=== PATIENT | female | born 1935 | race Hispanic/Latino ===

== ENCOUNTER 2017-10-05 05:37 | Inpatient (IN) | payer OTHER ==
[2017-10-01 09:25] VITALS: BP 153/71
[2017-10-01 09:53] LABS: BASOPHILS % (AUTO) 0.8 % (0.0-5.0); EOSINOPHILS % (AUTO) 2.2 % (0.0-8.0); HEMATOCRIT 32.3 % (36-48); MEAN CORPUSCULAR HEMOGLOBIN 27.8 pg (27.0-33.0); MEAN CORPUSCULAR HGB CONC 33.2 g/dL (32.0-36.0); MEAN CORPUSCULAR VOLUME 83.5 fL (79-99); MONOCYTES % (AUTO) 8.2 % (3.0-13.0); NEUTROPHILS % (AUTO) 68.8 % (40.0-77.0); NUCLEATED RED BLOOD CELLS 0.1 % (0.0-0.19); PLATELET COUNT (AUTO) 121 K/uL (130-400); RED BLOOD CELL COUNT(AUTO) 3.87 MIL/uL (4.00-5.50); RED CELL DISTRIBUTION WIDTH 17.3 % (11.0-15.5); WHITE BLOOD COUNT (AUTO) 2.5 K/uL (4.8-10.8)
[2017-10-01 10:00] LABS: CREATININE 0.7 mg/dL (0.5-1.5); POTASSIUM 3.7 mmol/L (3.5-5.1)
[2017-10-01 10:07] LABS: APPEARANCE,URINE Clear (CLEAR); BILIRUBIN,URINE Negative (NEGATIVE); COLOR,URINE Yellow (YELLOW); GLUCOSE, URINE (UA) Negative (NEGATIVE); KETONES,URINE Negative (NEGATIVE); LEUKOCYTE ESTERASE ,URINE Negative (NEGATIVE); NITRATE,URINE Negative (NEGATIVE); OCCULT BLOOD,URINE Negative (NEGATIVE); PROTEIN,URINE Negative (NEGATIVE)
[2017-10-01 10:07] LABS: INR 1.08 (0.85-1.15); PROTHROMBIN TIME 11.3 SEC (9.6-11.6)
[2017-10-01 10:18] LABS: BASOPHILS % (MANUAL) 3 % (0-2); EOSINOPHILS % (MANUAL) 1 % (1-6); LYMPHOCYTES % (MANUAL) 11 % (22-44); MAN.DIFF COMMENT-IMPRESSION MANUAL DIFFERENTIAL; MONOCYTES % (MANUAL) 7 % (2-9); PLATELET MORPHOLOGY COMMENT SLIGHTLY DECREASED; SEGMENTED NEUTROPHILS % 78 % (40-70)
[2017-10-05] VITALS (18 sets, daily range): BP systolic 116–184; BP diastolic 48–110
[~2017-10-05] VITALS: Ht 160 cm; Wt 89.8 kg
[~2017-10-05 05:37] MED LIST: ACET-2247 PO; ASPI81TA40 PO; METF500T6 PO; METO50TA18 PO; PANT20TA12 PO; PIOG45TA17 PO; SODIUM CHLORIDE 0.9% 500ML 500 ML IV SCH
[2017-10-05 06:03] LABS: BASOPHILS % (AUTO) 0.7 % (0.0-5.0); LYMPHOCYTES % (AUTO) 21.2 % (21.0-51.0); MEAN CORPUSCULAR HEMOGLOBIN 27.6 pg (27.0-33.0); MEAN CORPUSCULAR HGB CONC 33.4 g/dL (32.0-36.0); MEAN CORPUSCULAR VOLUME 82.6 fL (79-99); MONOCYTES % (AUTO) 8.3 % (3.0-13.0); NEUTROPHILS % (AUTO) 67.8 % (40.0-77.0); PLATELET COUNT (AUTO) 150 K/uL (130-400); RED CELL DISTRIBUTION WIDTH 16.6 % (11.0-15.5)
[2017-10-05 06:23] LABS: BASOPHILS % (MANUAL) 1 % (0-2); EOSINOPHILS % (MANUAL) 1 % (1-6); LYMPHOCYTES % (MANUAL) 16 % (22-44); MONOCYTES % (MANUAL) 12 % (2-9); SEGMENTED NEUTROPHILS % 70 % (40-70)
[2017-10-05 06:24] LABS: MAN.DIFF COMMENT-IMPRESSION MANUAL DIFFERENTIAL; PLATELET MORPHOLOGY COMMENT ADEQUATE
[2017-10-05] MEDS ORDERED: SODIUM CHLORIDE 0.9% 1000ML 1,000 ML IV ONE (06:24)
[2017-10-05] MEDS ORDERED: IOPAMIDOL-370 100 ML VIAL IV ONE (09:02)
[2017-10-05] MEDS ORDERED: LIDOCAINE HCL 2% 20ML ONE (09:02)
[2017-10-05] MEDS ORDERED: ISOVUE-370 50ML VIAL IV ONE (09:02)
[2017-10-05] MEDS ORDERED: NITROGLYCERIN 5 MG/ML 10 ML VIAL IV ONE (09:02)
[2017-10-05] MEDS ORDERED: BIVALIRUDIN 250 MG/VIAL IV ONE (09:10)
[2017-10-05] MEDS ORDERED: MIDAZOLAM HCL 1 MG/ML 2ML VIAL ONE (09:32)
[2017-10-05] MEDS ORDERED: LABETALOL HCL 5 MG/ML 20ML VIAL IV ONE (09:34)
[2017-10-05] MEDS ORDERED: IOPAMIDOL-370 75 ML VIAL IV ONE (09:40)
[2017-10-05] MEDS ORDERED: SODIUM CHLORIDE 0.9% 1000ML 1,000 ML IV SCH (10:08)
[2017-10-05] MEDS ORDERED: NITROGLYCERIN 0.4 MG SL TAB SL PRN (10:15)
[2017-10-05] MEDS ORDERED: DEXTROSE 50%-WATER 50 ML DISP.SYRIN IV PRN (10:15)
[2017-10-05] MEDS ORDERED: METOPROLOL TARTRATE 1 MG/ML 5ML VIAL IV PRN (10:15)
[2017-10-05] MEDS ORDERED: GLUCAGON 1MG KIT 1 MG ML IM PRN (10:15)
[2017-10-05] MEDS ORDERED: ATROPINE SULFATE 0.1 MG/ML 10 ML SYG IVP ONE (10:30)
[2017-10-05] MEDS: INSULIN HUMULIN R 100 UNIT/ML 3ML SQ SCH ×3 (11:30→21:00)
[2017-10-05] MEDS ORDERED: ETOMIDATE 2 MG/ML 10 ML VIAL IVP ONE (12:00)
[2017-10-05] MEDS ORDERED: ROCURONIUM BROMIDE 10MG/1ML 5ML VL IV ONE (12:00)
[2017-10-05 14:00] LABS: HEMATOCRIT 32.3 % (36-48); MEAN CORPUSCULAR HEMOGLOBIN 27.4 pg (27.0-33.0); MEAN CORPUSCULAR HGB CONC 32.8 g/dL (32.0-36.0); MEAN CORPUSCULAR VOLUME 83.4 fL (79-99); NUCLEATED RED BLOOD CELLS 0.1 % (0.0-0.19); PLATELET COUNT (AUTO) 127 K/uL (130-400); RED BLOOD CELL COUNT(AUTO) 3.87 MIL/uL (4.00-5.50); RED CELL DISTRIBUTION WIDTH 16.5 % (11.0-15.5); WHITE BLOOD COUNT (AUTO) 2.3 K/uL (4.8-10.8)
[2017-10-05 14:18] LABS: ALBUMIN 3.1 g/dL (3.5-5.0); BILIRUBIN,DIRECT 0.3 mg/dL (0.0-0.3); BILIRUBIN,TOTAL 1.1 mg/dL (0.2-1.0); CREATININE 0.7 mg/dL (0.5-1.5); POTASSIUM 3.7 mmol/L (3.5-5.1); TOTAL PROTEIN, SERUM 7.1 g/dL (6.0-8.3)
[2017-10-05 14:20] LABS: HEMOGLOBIN A1C 5.4 % (4.0-6.0)
[2017-10-05 14:27] LABS: INR 1.07 (0.85-1.15); PARTIAL THROMBOPLASTIN TIME 28.6 SEC (26.3-35.5); PROTHROMBIN TIME 11.2 SEC (9.6-11.6)
[2017-10-05] MEDS ORDERED: METOPROLOL TARTRATE 50 MG TAB PO SCH (15:15)
[2017-10-05] MEDS ORDERED: ATORVASTATIN CALCIUM 20 MG TABLET PO SCH (21:00)
[2017-10-06] VITALS (20 sets, daily range): BP systolic 108–170; BP diastolic 41–79
[2017-10-06] MEDS: CEFUROXIME SODIUM 1.5 GM VIAL IVP SCH ×4 (06:00→23:05)
[2017-10-06] MEDS ORDERED: WATER FOR INJECTION,STERILE 20 ML VIAL IJ SCH (06:00)
[2017-10-06] MEDS ORDERED: CEFUROXIME 1.5GM+NS 100ML 100 ML IV SCH ×2 (06:00→18:00)
[2017-10-06] MEDS ORDERED: OCTYL 2-CYANOACRYLATE 1 EACH TP ONE (06:54)
[2017-10-06] MEDS ORDERED: PAPAVERINE HCL 30 MG/ML 2ML VIAL ONE (06:54)
[2017-10-06] MEDS ORDERED: BACITRACIN 50,000 UNIT VIAL ONE (06:54)
[2017-10-06] MEDS ORDERED: SODIUM CHLORIDE 0.9% 1000ML 1,000 ML IV ONE (07:24)
[2017-10-06] MEDS ORDERED: HEPARIN SODIUM 1000UNIT/ML 10ML VIAL ONE ×2 (07:35→07:53)
[2017-10-06] MEDS ORDERED: THROMBIN-JMI 5000 UNIT/VIAL TP ONE (07:36)
[2017-10-06] MEDS ORDERED: ESMOLOL HCL 10 MG/ML 10 ML VIAL ONE (07:53)
[2017-10-06] MEDS ORDERED: MILRINONE-D5W 20 MG/100 ML 0 ML IV ONE (07:53)
[2017-10-06] MEDS ORDERED: GLYCOPYRROLATE 0.2 MG/ML 5 ML VIAL ONE (07:53)
[2017-10-06] MEDS ORDERED: NOREPINEPHRINE BITARTRATE 1 MG/1 ML ML IV ONE (07:53)
[2017-10-06] MEDS ORDERED: LIDOCAINE PF 2% 5ML ABBOJECT ONE (07:53)
[2017-10-06] MEDS ORDERED: EPINEPHRINE 1 MG/ML AMPULE ONE (07:53)
[2017-10-06] MEDS ORDERED: ROCURONIUM BROMIDE 10MG/1ML 5ML VL ONE (07:53)
[2017-10-06] MEDS ORDERED: AMINOCAPROIC ACID 250 MG/ML 20 ML VIAL IV ONE (07:53)
[2017-10-06] MEDS ORDERED: NEOSTIGMINE 5MG/5ML SYR IV ONE (07:53)
[2017-10-06] MEDS ORDERED: PROTAMINE SULFATE 10 MG/ML 25ML VIAL IV ONE (07:53)
[2017-10-06] MEDS ORDERED: AMIODARONE HCL 900MG/18ML IV ONE (07:53)
[2017-10-06] MEDS ORDERED: MIDAZOLAM HCL 1 MG/ML 5ML VIAL ONE (07:54)
[2017-10-06] MEDS ORDERED: PROPOFOL 10 MG/ML 20ML VIAL IV ONE (07:54)
[2017-10-06] MEDS ORDERED: FENTANYL CITRATE PF 50 MCG/1 ML 20ML VIAL IJ ONE (07:56)
[2017-10-06] MEDS ORDERED: SODIUM BICARB 50MEQ 50ML VIAL ONE ×3 (07:56→15:42)
[2017-10-06] MEDS ORDERED: NITROGLYCERIN 50 MG/D5% WATER 1 BOT ONE (07:57)
[2017-10-06 08:28] LABS: ABG BASE EXCESS 1.5 mmol/L (-2.0-3.0); ABG HCO3 25.5 mmol/L (21.0-28.0); ABG OXYGEN SATURATION 99.3 % (95.0-99.0); ABG PCO2 38 mmHg (32-45)
[2017-10-06] MEDS ORDERED: METOPROLOL TARTRATE 50 MG TAB PO SCH (09:00)
[2017-10-06] MEDS ORDERED: ASPIRIN 81 MG EC TAB PO SCH (09:00)
[2017-10-06] MEDS ORDERED: PANTOPRAZOLE SODIUM 40 MG TABLET.DR PO SCH (09:00)
[2017-10-06 09:34] LABS: ABG BASE EXCESS -0.1 mmol/L (-2.0-3.0); ABG HCO3 24.2 mmol/L (21.0-28.0); ABG OXYGEN SATURATION 99.4 % (95.0-99.0); ABG PCO2 38 mmHg (32-45)
[2017-10-06] MEDS ORDERED: SODIUM CHLORIDE 0.9% 500ML 500 ML IV SCH (09:46)
[2017-10-06] MEDS ORDERED: MAGNESIUM 2GM PREMIX 50ML 50 ML IV PRN (10:00)
[2017-10-06] MEDS ORDERED: SODIUM CHLORIDE 0.9% 250 ML IV PRN (10:00)
[2017-10-06] MEDS ORDERED: HYDROCODONE/ACETAMINOPHEN 5/325 MG TAB PO PRN ×2 (10:00)
[2017-10-06] MEDS ORDERED: EPINEPHRINE 2 MG in SODIUM CHLORIDE 0.9% 250 ML IV PRN (10:00)
[2017-10-06] MEDS ORDERED: DEXTROSE 50%-WATER 50 ML DISP.SYRIN IV PRN (10:00)
[2017-10-06] MEDS ORDERED: NITROGLYCERIN 50 MG/D5% WATER 250 BOT IV SCH (10:00)
[2017-10-06] MEDS ORDERED: ALBUMIN (HUMAN) 5% 250 ML IV PRN (10:00)
[2017-10-06] MEDS ORDERED: PROPOFOL 1000 MG/100 ML 100 ML IV PRN (10:00)
[2017-10-06] MEDS ORDERED: NICARDIPINE HCL 100 MG in SODIUM CHLORIDE 0.9% 60 ML IV PRN (10:00)
[2017-10-06] MEDS ORDERED: GLUCAGON 1MG KIT 1 MG ML IM PRN (10:00)
[2017-10-06] MEDS ORDERED: SODIUM CHLORIDE 0.9% 1000ML 1,000 ML IV SCH (10:00)
[2017-10-06] MEDS ORDERED: ACETAMINOPHEN 650 MG SUPPOSITORY RC PRN (10:00)
[2017-10-06] MEDS ORDERED: INSULIN REGULAR, HUMAN 3ML 100 UNIT in SODIUM CHLORIDE 0.9% 99 ML IV SCH ×2 (10:00)
[2017-10-06] MEDS ORDERED: AMINOCAPROIC ACID 15,000 MG in SODIUM CHLORIDE 0.9% 250 ML IV SCH (10:00)
[2017-10-06] MEDS ORDERED: ACETAMINOPHEN 325 MG TAB PO PRN (10:00)
[2017-10-06] MEDS ORDERED: MORPHINE SULFATE 4 MG/1ML SYG IV PRN (10:00)
[2017-10-06] MEDS ORDERED: SODIUM CHLORIDE 0.9% 10 ML VIAL IVP PRN (10:00)
[2017-10-06] MEDS ORDERED: POTASSIUM PHOS 15 mMOL+NS250ML 250 ML IV PRN (10:00)
[2017-10-06] MEDS ORDERED: NOREPINEPHRINE 4MG/NS 250ML 250 ML IV PRN (10:00)
[2017-10-06] MEDS ORDERED: CALCIUM GLUCONATE 1 GM in SODIUM CHLORIDE 0.9% 50 ML IV PRN (10:00)
[2017-10-06 10:45] LABS: ABG HCO3 23.5 mmol/L (21.0-28.0); ABG OXYGEN SATURATION 99.4 % (95.0-99.0); ABG PCO2 34 mmHg (32-45)
[2017-10-06] MEDS ORDERED: EPHEDRINE SULFATE 50 MG/ML AMPULE ONE (10:52)
[2017-10-06 11:36] LABS: ABG BASE EXCESS 0.1 mmol/L (-2.0-3.0); ABG HCO3 25.5 mmol/L (21.0-28.0); ABG OXYGEN SATURATION 97.4 % (95.0-99.0); ABG PCO2 45 mmHg (32-45)
[2017-10-06 11:44] LABS: HEMATOCRIT 30.3 % (36-48); MEAN CORPUSCULAR HEMOGLOBIN 28.1 pg (27.0-33.0); MEAN CORPUSCULAR HGB CONC 33.9 g/dL (32.0-36.0); MEAN CORPUSCULAR VOLUME 82.8 fL (79-99); PLATELET COUNT (AUTO) 162 K/uL (130-400); RED BLOOD CELL COUNT(AUTO) 3.65 MIL/uL (4.00-5.50); RED CELL DISTRIBUTION WIDTH 16.2 % (11.0-15.5); WHITE BLOOD COUNT (AUTO) 9.9 K/uL (4.8-10.8)
[2017-10-06 11:55] LABS: CREATININE 0.6 mg/dL (0.5-1.5); MAGNESIUM 1.3 mg/dL (1.80-2.40); PHOSPHORUS 3.4 mg/dL (2.5-4.9); POTASSIUM 3.5 mmol/L (3.5-5.1)
[2017-10-06] MEDS: POTASSIUM CHLORIDE 20MEQ/100ML 100 ML IV PRN ×2 (12:06→13:14)
[2017-10-06 14:05] LABS: ABG BASE EXCESS -1.9 mmol/L (-2.0-3.0); ABG HCO3 23.7 mmol/L (21.0-28.0); ABG OXYGEN SATURATION 96.4 % (95.0-99.0); ABG PCO2 44 mmHg (32-45)
[2017-10-06] MEDS: SODIUM BICARB 8.4% 50ML SYRINGE IV PRN ×2 (14:10→15:43)
[2017-10-06] MEDS: MORPHINE SULFATE 2 MG/ML 1ML SYG IV PRN (15:08)
[2017-10-06 15:40] LABS: ABG BASE EXCESS -1.2 mmol/L (-2.0-3.0); ABG HCO3 26.7 mmol/L (21.0-28.0); ABG OXYGEN SATURATION 92.2 % (95.0-99.0); ABG PCO2 58 mmHg (32-45)
[2017-10-06] MEDS: ONDANSETRON HCL 4 MG/2 ML VIAL IV PRN (16:52)
[2017-10-06] MEDS: TRAMADOL HCL 50 MG TABLET PO PRN (20:38)
[2017-10-06 21:26] LABS: POTASSIUM 4.6 mmol/L (3.5-5.1)
[2017-10-06] MEDS: WATER FOR INJECTION,STERILE 20 ML VIAL IJ SCH (23:05)
[2017-10-07] VITALS (25 sets, daily range): BP systolic 96–140; BP diastolic 41–66
[2017-10-07] MEDS: TRAMADOL HCL 50 MG TABLET PO PRN ×3 (02:02→10:06)
[2017-10-07] MEDS: ONDANSETRON HCL 4 MG/2 ML VIAL IV PRN (03:47)
[2017-10-07] MEDS: MORPHINE SULFATE 2 MG/ML 1ML SYG IV PRN (03:47)
[2017-10-07 03:50] LABS: HEMATOCRIT 31.6 % (36-48); MEAN CORPUSCULAR HEMOGLOBIN 27.3 pg (27.0-33.0); MEAN CORPUSCULAR HGB CONC 32.4 g/dL (32.0-36.0); MEAN CORPUSCULAR VOLUME 84.5 fL (79-99); PLATELET COUNT (AUTO) 155 K/uL (130-400); RED BLOOD CELL COUNT(AUTO) 3.75 MIL/uL (4.00-5.50); RED CELL DISTRIBUTION WIDTH 16.8 % (11.0-15.5); WHITE BLOOD COUNT (AUTO) 11.5 K/uL (4.8-10.8)
[2017-10-07 04:04] LABS: CREATININE 0.8 mg/dL (0.5-1.5); PHOSPHORUS 5.4 mg/dL (2.5-4.9); POTASSIUM 4.7 mmol/L (3.5-5.1)
[2017-10-07] MEDS ORDERED: ALBUMIN (HUMAN) 5% 250 ML IV SCH (06:30)
[2017-10-07] MEDS ORDERED: TRAMADOL HCL 50 MG TABLET PO PRN (07:45)
[2017-10-07] MEDS ORDERED: PANTOPRAZOLE SODIUM 40 MG TABLET.DR PO SCH (09:00)
[2017-10-07] MEDS ORDERED: ASPIRIN 81MG TAB.CHEW PO SCH (09:00)
[2017-10-07] MEDS ORDERED: FENTANYL 25 MCG/HR PATCH TD SCH (09:00)
[2017-10-07] MEDS: FUROSEMIDE 10 MG/ML 2ML VIAL IV SCH ×2 (10:05→20:17)
[2017-10-07] MEDS: CEFUROXIME SODIUM 1.5 GM VIAL IVP SCH (12:08)
[2017-10-07] MEDS: WATER FOR INJECTION,STERILE 20 ML VIAL IJ SCH ×2 (12:09→17:16)
[2017-10-07] MEDS ORDERED: ATORVASTATIN CALCIUM 40 MG TABLET PO SCH (21:00)
[2017-10-08] VITALS (16 sets, daily range): BP systolic 82–163; BP diastolic 42–71
[2017-10-08] MEDS: TRAMADOL HCL 50 MG TABLET PO PRN ×2 (00:40→04:42)
[2017-10-08] MEDS: ONDANSETRON HCL 4 MG/2 ML VIAL IV PRN (01:01)
[2017-10-08 03:44] LABS: HEMATOCRIT 27.3 % (36-48); MEAN CORPUSCULAR HEMOGLOBIN 28.5 pg (27.0-33.0); MEAN CORPUSCULAR HGB CONC 33.2 g/dL (32.0-36.0); MEAN CORPUSCULAR VOLUME 85.9 fL (79-99); NUCLEATED RED BLOOD CELLS 0.1 % (0.0-0.19); PLATELET COUNT (AUTO) 169 K/uL (130-400); RED BLOOD CELL COUNT(AUTO) 3.18 MIL/uL (4.00-5.50); RED CELL DISTRIBUTION WIDTH 17.1 % (11.0-15.5); WHITE BLOOD COUNT (AUTO) 14.4 K/uL (4.8-10.8)
[2017-10-08 03:51] LABS: CREATININE 1.4 mg/dL (0.5-1.5); POTASSIUM 5.3 mmol/L (3.5-5.1)
[2017-10-08 05:20] LABS: PHOSPHORUS 5.4 mg/dL (2.5-4.9)
[2017-10-08] MEDS ORDERED: PHENYLEPHRINE HCL 50 MG in SODIUM CHLORIDE 0.9% 250 ML IV SCH (09:45)
[2017-10-08] MEDS ORDERED: FUROSEMIDE 100 MG in SODIUM CHLORIDE 0.9% 90 ML IV SCH (09:45)
[2017-10-08] MEDS ORDERED: MEROPENEM 500MG+NS 50ML 50 ML IV SCH (09:45)
[2017-10-08] MEDS ORDERED: MEROPENEM 500 MG VIAL IVP SCH (09:46)
[2017-10-08] MEDS: FUROSEMIDE 10 MG/ML 2ML VIAL IV SCH (09:52)
[2017-10-08 10:35] LABS: ABG BASE EXCESS -3.3 mmol/L (-2.0-3.0); ABG HCO3 27.4 mmol/L (21.0-28.0); ABG OXYGEN SATURATION 82.9 % (95.0-99.0); ABG PCO2 78 mmHg (32-45)
[2017-10-08] MEDS ORDERED: PROPOFOL 1000 MG/100 ML 100 ML IV ONE (10:46)
[2017-10-08 11:17] LABS: ABG BASE EXCESS -1.1 mmol/L (-2.0-3.0); ABG HCO3 26.5 mmol/L (21.0-28.0); ABG OXYGEN SATURATION 99.2 % (95.0-99.0); ABG PCO2 60 mmHg (32-45)
== END 2017-10-08 11:45 | disposition short-term general hospital (02) | DRG 233 ==
LOC: DAH 05:37 → DAHIP 05:38 → UNDOADMIN 08:38 → DAHIP 08:38 → 2CH 15:10 → 2AH 20:16 → 2CV 10-06 08:43 → 2BH 10-07 18:32
PROVIDERS: ADMIT Internal Medicine; ATTEND Internal Medicine
PROC: 4A023N7 Measurement of Cardiac Sampling and Pressure, Left Heart, Percutaneous Approach (ICD-10-PCS; principal; 2017-10-05)
PROC: B2151ZZ Fluoroscopy of Left Heart using Low Osmolar Contrast (ICD-10-PCS; 2017-10-05)
PROC: B2111ZZ Fluoroscopy of Multiple Coronary Arteries using Low Osmolar Contrast (ICD-10-PCS; 2017-10-05)
PROC: B3121ZZ Fluoroscopy of Left Subclavian Artery using Low Osmolar Contrast (ICD-10-PCS; 2017-10-05)
PROC: 02100Z9 Bypass Coronary Artery, One Artery from Left Internal Mammary, Open Approach (ICD-10-PCS; 2017-10-06)
PROC: 021209W Bypass Coronary Artery, Three Arteries from Aorta with Autologous Venous Tissue, Open Approach (ICD-10-PCS; 2017-10-06)
PROC: 06BQ4ZZ Excision of Left Saphenous Vein, Percutaneous Endoscopic Approach (ICD-10-PCS; 2017-10-06)
DX: I25.110 Atherosclerotic heart disease of native coronary artery with unstable angina pectoris (principal); I63.9 Cerebral infarction, unspecified; I11.0 Hypertensive heart disease with heart failure; I50.32 Chronic diastolic (congestive) heart failure; E11.51 Type 2 diabetes mellitus with diabetic peripheral angiopathy without gangrene; E03.9 Hypothyroidism, unspecified; E78.5 Hyperlipidemia, unspecified; K21.9 Gastro-esophageal reflux disease without esophagitis; M19.90 Unspecified osteoarthritis, unspecified site; R09.02 Hypoxemia; Z79.82 Long term (current) use of aspirin; Z79.899 Other long term (current) drug therapy; Z88.8 Allergy status to other drugs, medicaments and biological substances
CPT/HCPCS: 31500; 36415; 36600; 70450; 71045; 76700; 76856; 80048; 80053; 80061; 80076; 81003; 82330; 82435; 82803; 82947; 82948; 83036; 83605; 83735; 84100; 84132; 84295; 85007; 85018; 85025; 85027; 85347; 85610; 85730; 86850; 86900; 86901; 86922; 93005; 93458; 93880; 94002; 94010; 94150; 94660; 97039; 99152; 99153; A4218; A4606; A7048; C1894; J0171; J0282; J0461; J0583; J0697; J1644; J1815; J1940; J2001; J2250; J2260; J2370; J2405; J2440; J2704; J2710; J2720; J3010; J3475; J3480; J3490; J7030; J7040; J7120; P9045; Q9967

== ENCOUNTER → 2017-12-30 | Outpatient (CLI) | payer OTHER ==
[~2017-12-30] MED LIST changes: -PIOG45TA17 PO; +PIOG45TA64 PO; -SODIUM CHLORIDE 0.9% 500ML 500 ML IV SCH
== END | disposition home or self-care (01) ==
LOC: SHCH 13:59
PROVIDERS: ATTEND Internal Medicine Cardiovascular Disease
DX: I51.7 Cardiomegaly (principal); Z95.1 Presence of aortocoronary bypass graft
CPT/HCPCS: 93306

== ENCOUNTER → 2017-12-31 | Outpatient (CLI) | payer OTHER | END | disposition home or self-care (01) | LOC: SHCH 08:34 | PROVIDERS: ATTEND Internal Medicine Cardiovascular Disease | DX: I65.22 Occlusion and stenosis of left carotid artery (principal); R09.89 Other specified symptoms and signs involving the circulatory and respiratory systems | CPT/HCPCS: 93880 ==

== ENCOUNTER → 2019-01-14 | Outpatient (CLI) | payer OTHER ==
[~2019-01-14] MED LIST changes: +METF-444 PO; -METF500T6 PO
== END | disposition home or self-care (01) ==
LOC: SHCH 14:06
PROVIDERS: ATTEND Internal Medicine Cardiovascular Disease
DX: I35.0 Nonrheumatic aortic (valve) stenosis (principal); I20.9 Angina pectoris, unspecified
CPT/HCPCS: 93306

== ENCOUNTER → 2020-02-13 | Outpatient (CLI) | payer OTHER | END | disposition home or self-care (01) | LOC: SHCH 11:00 | PROVIDERS: ATTEND Internal Medicine Cardiovascular Disease | DX: I20.9 Angina pectoris, unspecified (principal); R06.09 Other forms of dyspnea ==

== ENCOUNTER → 2020-03-13 | Outpatient (CLI) | payer OTHER ==
[~2020-03-13] MED LIST changes: +REGADENOSON 0.4 MG/5 ML PF SYG IVP SCH
== END | disposition home or self-care (01) ==
LOC: SHCH 07:57
PROVIDERS: ATTEND Internal Medicine Cardiovascular Disease
DX: I20.9 Angina pectoris, unspecified (principal); R06.09 Other forms of dyspnea
CPT/HCPCS: 78452; 93017; 96374; A9500 ×2; J2785

== ENCOUNTER → 2020-10-16 | Outpatient (CLI) | payer OTHER ==
[~2020-10-16] MED LIST changes: -PANT20TA12 PO; +PANT20TA18 PO; -REGADENOSON 0.4 MG/5 ML PF SYG IVP SCH
== END | disposition home or self-care (01) ==
LOC: RAH 12:59
PROVIDERS: ATTEND Family Medicine
DX: J01.00 Acute maxillary sinusitis, unspecified (principal); R93.89 Abnormal findings on diagnostic imaging of other specified body structures
CPT/HCPCS: 70486

== ENCOUNTER → 2021-03-20 | Outpatient (CLI) | payer OTHER | END | disposition home or self-care (01) | LOC: SHCH 15:17 | PROVIDERS: ATTEND Internal Medicine Cardiovascular Disease | DX: I35.0 Nonrheumatic aortic (valve) stenosis (principal) | CPT/HCPCS: 93306 ==